=== PATIENT | female | born 1970 | race Caucasian/White ===

== ENCOUNTER 2017-12-25 18:45 | Emergency (ER) | payer MEDICAID ==
--- NOTE | 2017-12-25 18:39 | EDPHY ---
H & P Time Seen by Provider: 12/25/17 18:45 Constitutional: Initial Vital Signs Temperature (C) 36.9 C 12/25/17 18:46 Heart Rate 101 H 12/25/17 18:46 Respiratory Rate 22 H 12/25/17 18:46 Blood Pressure 167/107 H 18 18:46 O2 Sat (%) 96 12/25/17 18:46 O2 Delivery Mode Room Air Allergies/Adverse Reactions: acetaminophen [From Darvocet-N] Allergy (Verified 12/25/17 18:51) morphine Allergy (Verified 12/25/17 18:51) propoxyphene [From Darvocet-N] Allergy (Verified 12/25/17 18:51) Home Medications: Medication Instructions Recorded Hydrocodone/APAP 5/325 [[place] 1 - 2 each PO Q4-6PRN PRN #20 tab 12/25/17 5/325] Ondansetron Odt [Zofran Odt 4 mg 4 mg PO Q4 PRN #10 tab 12/25/17 (RX)] Medical Decision Making - Diagnostics Imaging Results: Imaging Impressions Abdomen CT 12/25/17 18:48 Impression: 1. Moderate distention of the stomach. 2. Prior right lower quadrant bowel surgery. There is mild dilatation of the distal ileum proximal to the anastomosis with the cecum potentially related to mild narrowing at the anastomosis. No evidence of abscess or inflammatory change. 3. 4-cm left ovarian cyst. Results called to Dr. Aquino at 8:20 p.m. Imaging: Discussed imaging studies w/ concierge manager Radiologist, I viewed and interpreted images myself ED Course/Re-evaluation: CHIEF COMPLAINT: Abdominal pain HISTORY OF PRESENT ILLNESS: The patient is a 47 y/o female arriving via EMS from her sister's house complaining of abdominal pain onset yesterday. She has a history of Crohn's disease and was previously on Remicade. She is not currently on medications as she decided to not resume it due to an illness that required hospitalization. She currently complains of nausea without vomiting and abdominal pain primarily localized to her RLQ. She received Fentanyl en route from EMS. She denies diarrhea, constipation, bloody bowel movements, fever , or acute complaints. She says her last flare was several years ago. REVIEW OF SYSTEMS: A comprehensive 10 system review of systems is otherwise negative aside from elements mentioned in the history of present illness and medical decision making. PHYSICAL EXAM: HR, BP, O2 Sat, RR. Temp noted General Appearance: Alert, well hydrated, appropriate, and non-toxic appearing. Head: Atraumatic without scalp tenderness or obvious injury Eyes: Pupils equal, round, reactive to light and accommodation, EOMI, no trauma , no injection. Nose: Atraumatic, no rhinorrhea, clear. Throat: Mucus membranes moist. Neck: Supple, nontender, no lymphadenopathy. Respiratory: No retractions, no distress, no wheezes, and no accessory muscle use. Lungs are clear to auscultation bilaterally. Cardiovascular: Regular rate and rhythm, no murmurs, rubs, or gallops. Good capillary refill all extremities. Gastrointestinal: Abdomen is soft, RLQ tenderness, non-distended, no masses, no rebound, no guarding, no peritoneal signs. Musculoskeletal: Normal active ROM of all extremities, atraumatic. Neurological: Alert, appropriate, and interactive. The patient has non-focal cranial nerves, motor, sensory, and cerebellar exam. Skin: No rashes, good turgor, no nodules on palpation. Past medical history: Crohn's disease Past surgical history: Some sort of colon and small intestine resection in [place] Family history: Noncontributory Social history: Lives with sister/transient. Smoker. DIAGNOSTICS/PROCEDURES/CRITICAL CARE TIME: Abdominal CT: no obvious source for pain DIFFERENTIAL DIAGNOSIS: The differential diagnosis for the patient's abdominal pain included but was not limited to ovarian cyst, pelvic inflammatory disease, ovarian torsion, urinary tract infection, ectopic , cholecystitis, and appendicitis. MEDICAL DECISION MAKING: This is a 47 y/o female with Crohn's disease and prior resection who presents with a 1-day history of abdominal pain and nausea. She has RLQ tenderness on exam. Plan for IV, labs, abdominal CT, and symptom management. 1L IV NS, 4mg IV Zofran, 1mg IV Dilaudid, 30mg IV Ketorolac ordered. CT does not show active inflammatory bowel changes or other concerning causes for her pain. Reassessed patient and discussed findings. Recommended discharge home with scripts for Zofran and [place] and referral to GI for follow up. She is comfortable with this plan. Return precautions discussed. - Data Points Laboratory Results: Laboratory Results 12/25/17 19:00 12/25/17 19:00 12/25/17 12/25/17 12/25/17 19:00 19:00 19:00 WBC 8.13 10^3/uL 10^3/uL (3.80-9.50) RBC 5.32 10^6/uL 10^6/uL (4.18-5.33) Hgb 11.7 g/dL L g/dL (12.6-16.3) POC Hgb Hct 38.4 % % (38.0-47.0) POC Hct MCV 72.2 fL L fL (81.5-99.8) MCH 22.0 pg L pg (27.9-34.1) MCHC 30.5 g/dL L g/dL (32.4-36.7) RDW 15.8 % H % (11.5-15.2) Plt Count 295 10^3/uL 10^3/uL (150-400) MPV 9.2 fL fL (8.7-11.7) Neut % (Auto) 73.0 % % (39.3-74.2) Lymph % (Auto) 17.0 % % (15.0-45.0) Towner % (Auto) 6.6 % % (4.5-13.0) Eos % (Auto) 2.6 % % (0.6-7.6) Baso % (Auto) 0.4 % % (0.3-1.7) Nucleat RBC Rel Count 0.0 % % (0.0-0.2) Absolute Neuts (auto) 5.94 10^3/uL 10^3/uL (1.70-6.50) Absolute Lymphs (auto) 1.38 10^3/uL 10^3/uL (1.00-3.00) Absolute Monos (auto) 0.54 10^3/uL 10^3/uL (0.30-0.80) Absolute Eos (auto) 0.21 10^3/uL 10^3/uL (0.03-0.40) Absolute Basos (auto) 0.03 10^3/uL 10^3/uL (0.02-0.10) Absolute Nucleated RBC 0.00 10^3/uL 10^3/uL (0-0.01) Immature Gran % 0.4 % % (0.0-1.1) Immature Gran # 0.03 10^3/uL 10^3/uL (0.00-0.10) POC Sodium Sodium 137 mEq/L mEq/L (135-145) POC Potassium Potassium 3.9 mEq/L mEq/L (3.3-5.0) POC Chloride Chloride 103 mEq/L mEq/L (97-110) Carbon Dioxide 26 mEq/l mEq/l (22-31) Anion Gap 8 mEq/L mEq/L (6-14) POC BUN BUN 12 mg/dL mg/dL (7-23) Creatinine 0.7 mg/dL mg/dL (0.6-1.0) POC Creatinine Estimated GFR > 60 Glucose 134 mg/dL H mg/dL (70-100) POC Glucose Calcium 9.2 mg/dL mg/dL (8.5-10.4) Total Bilirubin 0.2 mg/dL mg/dL (0.1-1.4) Conjugated Bilirubin 0.2 mg/dL mg/dL (0.0-0.5) Unconjugated Bilirubin 0.0 mg/dL mg/dL (0.0-1.1) AST 22 IU/L IU/L (14-46) ALT 33 IU/L IU/L (9-52) Alkaline Phosphatase 107 IU/L IU/L (38-126) Total Protein 6.5 g/dL g/dL (6.3-8.2) Albumin 3.6 g/dL g/dL (3.5-5.0) Lipase 299 IU/L IU/L (23-300) Beta HCG, Qual NEGATIVE 12/25/17 18:58 WBC RBC Hgb POC Hgb 12.9 gm/dL gm/dL (12.6-16.3) Hct POC Hct 38 % % (38-47) MCV MCH MCHC RDW Plt Count MPV Neut % (Auto) Lymph % (Auto) Towner % (Auto) Eos % (Auto) Baso % (Auto) Nucleat RBC Rel Count Absolute Neuts (auto) Absolute Lymphs (auto) Absolute Monos (auto) Absolute Eos (auto) Absolute Basos (auto) Absolute Nucleated RBC Immature Gran % Immature Gran # POC Sodium 141 mEq/L mEq/L (135-145) Sodium POC Potassium 3.6 mEq/L mEq/L (3.3-5.0) Potassium POC Chloride 103 mEq/L mEq/L (97-110) Chloride Carbon Dioxide Anion Gap POC BUN 11 mg/dL mg/dL (7-23) BUN Creatinine POC Creatinine 0.7 mg/dL mg/dL (0.6-1.0) Estimated GFR Glucose POC Glucose 141 mg/dL H mg/dL (70-100) Calcium Total Bilirubin Conjugated Bilirubin Unconjugated Bilirubin AST ALT Alkaline Phosphatase Total Protein Albumin Lipase Beta HCG, Qual Medications Given: Discontinued Medications Hydromorphone HCl (Dilaudid) 1 mg IVP EDNOW ONE Stop: 12/25/17 18:49 Last Admin: 12/25/17 19:02 Dose: 1 mg Sodium Chloride (Ns) 1,000 mls @ 0 mls/hr IV EDNOW ONE; Wide Open PRN Reason: Protocol Stop: 12/25/17 18:49 Last Admin: 12/25/17 19:00 Dose: 1,000 mls Ketorolac Tromethamine (Toradol) 30 mg IVP EDNOW ONE Stop: 12/25/17 18:49 Last Admin: 12/25/17 19:01 Dose: 30 mg Ondansetron HCl (Zofran) 4 mg IVP EDNOW ONE Stop: 12/25/17 18:49 Last Admin: 12/25/17 19:00 Dose: 4 mg Promethazine HCl (Phenergan 25 Mg Prepack #4) 1 btl TAKEHOME EDNOW ONE Stop: 12/25/17 21:11 Last Admin: 12/25/17 21:17 Dose: 1 btl Point of Care Test Results: Chemistry 12/25/17 18:58 POC Sodium 141 mEq/L mEq/L (135-145) POC Potassium 3.6 mEq/L mEq/L (3.3-5.0) POC Chloride 103 mEq/L mEq/L (97-110) POC BUN 11 mg/dL mg/dL (7-23) POC Creatinine 0.7 mg/dL mg/dL (0.6-1.0) POC Glucose 141 mg/dL H mg/dL (70-100) ISTAT H&H 12/25/17 18:58 POC Hgb 12.9 gm/dL gm/dL (12.6-16.3) POC Hct 38 % % (38-47) Departure - Departure Disposition: Home, Routine, Self-Care Clinical Impression: Abdominal pain Qualifiers: Abdominal location: right lower quadrant Qualified Code(s): R10.31 - Right lower quadrant pain Condition: Good Instructions: Abdominal Pain (ED) Additional Instructions: 1. Use Zofran as prescribed for nausea or vomiting. 2. Use [place] as prescribed as needed for severe pain; this medication can make you constipated and drowsy. Do not use prior to driving. 3. Follow up with your GI specialist in the next 2-3 days. 4. Return to the ED for worsening of condition. Referrals: Robb Miranda MD [Medical Doctor] - As per Instructions Prescriptions: Hydrocodone/APAP 5/325 [[place] 5/325] 1 - 2 each PO Q4-6PRN PRN #20 tab PRN Reason: Pain, Moderate Ondansetron Odt [Zofran Odt 4 mg (RX)] 4 mg PO Q4 PRN #10 tab PRN Reason: Nausea/Vomiting, Use 1st Report Scribed for: Ru Aquino Report Scribed by: Larissa Acosta Date of Report: 12/25/17 Time of Report: 18:48
[2017-12-25] MEDS ORDERED: HYDROmorphONE/DILAUDID 2 MG/ML INJ IVP ONE (18:48)
[2017-12-25] MEDS ORDERED: KETOROLAC 30 MG/1 ML SDV IVP ONE (18:48)
[2017-12-25] MEDS ORDERED: NS 1,000 ML IV ONE (18:48)
[2017-12-25] MEDS ORDERED: ONDANSETRON 4 MG/2 ML VIAL IVP ONE (18:48)
[2017-12-25 19:05] LABS: PLATELET COUNT 295 10^3/uL (150-400)
[2017-12-25] MEDS ORDERED: IOPAMIDOL (ISOVUE-300) 100 ML BTL ONE (19:14)
[2017-12-25] MEDS ORDERED: PROMETHAZINE 25 MG PREPACK #4 BTL TAKEHOME ONE (21:10)
[2017-12-26 02:53] VITALS: BP 167/95
== END 2017-12-25 21:30 | disposition home or self-care (01) ==
LOC: EDUNIT# → EDBD
DX: R10.31 Right lower quadrant pain (principal); Z87.19 Personal history of other diseases of the digestive system
CPT/HCPCS: 82435-PO; 82565-PO; 82947-PO; 84132-PO; 84295-PO; 84520-PO; 85014-PO; 96374; J1170; J1885; J2405; Q9967